=== PATIENT | female | born 1975 | race Caucasian/White ===

== ENCOUNTER 2022-06-10 00:46 | Day surgery (SDC) | payer BC, SELFPAY ==
[2022-05-28 13:45] VITALS: BMI 37.1
[2022-06-10 12:38] VITALS: BP 143/87; PULSE 74; RESP 18; TEMP 36.5; O2SAT 100
[2022-06-10] MEDS: LACTATED RINGERS 1,000 ML 150 ML IV CONT (12:46)
--- NOTE | 2022-06-10 12:47 | WPDANESEPPF ---
Anes - Initial Pre Proc Eval Procedure: Operation Date: 06/10/22 13:45 Proposed Procedures p Screening Colonoscopy - Ernesto Aleman MD Date/Time: 06/10/22 12:47 Surgeon: Ernesto Aleman MD Pre Op Diagnosis: neoplasm screening Patient Data Age: 47 Gender: F Height: 1.68 m Weight: 108.7 kg Last Vital Signs Temp 97.7 F 06/10/22 12:38 Pulse 74 06/10/22 12:38 Resp 18 06/10/22 12:38 BP 143/87 H 06/10/22 12:38 Pulse Ox 100 06/10/22 12:38 O2 Del Method Room Air 06/10/22 12:38 Allergies Allergy/AdvReac Type Severity Reaction Status Date / Time No Known Allergies Allergy Verified 06/10/22 12:29 Home Medications Medication Instructions Recorded Confirmed Type cetirizine 10 mg tablet (Zyrtec) 10 mg PO DAILY PRN allergies 05/28/22 05/28/22 History multivitamin with minerals-folic 1 tablet PO DAILY 05/28/22 05/28/22 History acid 0.4 mg tablet Patient hx anesthesia problems: none Family hx anesthesia problems: none Results Review: All pre-operative results and documents have been reviewed as part of the pre-operative evaluation. [facility] Social History Social History Smoking status: Never smoker Alcohol intake: current Drinks per week: 4 Alcohol use details: social Substance use type: does not use Living arrangements: with family Spiritual care concerns: No Anes - Eval Final PreProcedure Day of Procedure 06/10/22 12:47 Patient weight: obese Heart: regular rate and rhythm Lungs: clear to auscultation Airway: Mallampati scale class II Neurological: alert and oriented Last oral intake: >/= 8 hours ASA classification: II Emergent: no Anesthetic plan: proceed Anesthesia type and monitoring: general GIVS and standard monitoring Results Review: All pre-operative results and documents have been reviewed as part of the pre-operative evaluation. Informed Consent: The patient's anesthetic plan and its attendant risks and benefits were discussed with the patient/family/POA. Questions were solicited and answers provided to the satisfaction of the patient/family/POA.
--- NOTE | 2022-06-10 13:35 | PM.HPGS ---
History of Present Illness History of Present Illness Consent: Risks, benefits, and alternatives have been discussed and questions answered. Patient agrees to proceed with procedure. Chief complaint: neoplasm screening Narrative: Lori Ponce is a 47 year old female here for first screening colonoscopy Review of Systems Constitutional: Constitutional: Denies headache(s) and Denies weakness Eyes: Eyes: Denies blurry vision ENT: Reports Normal hearing present, Denies headache(s) and Denies neck pain Cardiovascular: Cardiovascular: Denies chest pain and Denies dyspnea Respiratory: Respiratory: Denies dyspnea Gastrointestinal: Gastrointestinal: Reports no additional gastrointestinal complaints Genitourinary: Genitourinary: Denies dysuria Musculoskeletal: Musculoskeletal: Denies neck pain Integumentary/Breasts: Skin/Breast: Denies dry skin Neurologic: Reports Normal hearing present, Denies headache(s) and Denies weakness Psychiatric: Psychiatric: Denies anxiety Endocrine: Endocrine: Denies change in body appearance Hematologic/Lymphatic: Hematologic/Lymphatic: Denies easy bleeding Allergic/Immunologic: Allergic/Immunologic: Denies urticaria PMF Past Medical History Medical History (Updated 06/10/22 @ 13:35 by Ernesto Aleman MD) Colon cancer screening Social History Social History Smoking status: Never smoker Alcohol intake: current Drinks per week: 4 Alcohol use details: social Substance use type: does not use Living arrangements: with family Spiritual care concerns: No Meds Home Medications and Allergies Home Medications Medication Instructions Recorded Confirmed Type cetirizine 10 mg tablet (Zyrtec) 10 mg PO DAILY PRN allergies 05/28/22 05/28/22 History multivitamin with minerals-folic 1 tablet PO DAILY 05/28/22 05/28/22 History acid 0.4 mg tablet Allergies Allergy/AdvReac Type Severity Reaction Status Date / Time No Known Allergies Allergy Verified 06/10/22 12:29 Vital Signs Vital Signs - 24 hr 06/10/22 12:38 Temperature 97.7 F Pulse Rate 74 Respiratory Rate 18 Blood Pressure 143/87 H Pulse Oximetry 100 Oxygen Delivery Room Air Exam Const: General: comfortable and no acute distress HENMT: Face/Nose/Sinus: Normal nares present Eyes: General: appearance normal, both eyes and all related structures Neck: Neck: no JVD Resp: Auscultation: clear to auscultation bilaterally Cardio: Rate: regular rate Rhythm: regular rhythm GI: Inspection: non-distended GI Palp: Yes Soft to palpation Skin: General skin exam: normal color Neuro: General: gait normal Speech: normal speech Extrem: General: normal to inspection Psych: Mental Status: mental status grossly normal Assessment and Plan Assessment and plan (1) Colon cancer screening: Code(s): Z12.11 - Encounter for screening for malignant neoplasm of colon Status: Acute Assessment and Plan: colonoscopy
[2022-06-10 14:04] VITALS: BP 132/74; PULSE 80; RESP 18; O2SAT 100
[2022-06-10 14:14] VITALS: BP 127/74; PULSE 74; RESP 16; O2SAT 100
[2022-06-10 14:24] VITALS: BP 137/87; PULSE 68; RESP 24; O2SAT 100
== END 2022-06-10 14:42 | disposition home or self-care (01) ==
PROVIDERS: PCP Family Medicine; Visit Provider Internal Medicine Gastroenterology
PROC: 0DJD8ZZ Inspection of Lower Intestinal Tract, Via Natural or Artificial Opening Endoscopic (ICD-10-PCS; CPT 45378; principal; 2022-06-10 13:45)
DX: Z12.11 Encounter for screening for malignant neoplasm of colon (principal); D12.0 Benign neoplasm of cecum; K64.8 Other hemorrhoids; E66.9 Obesity, unspecified; Z68.38 Body mass index [BMI] 38.0-38.9, adult
CPT/HCPCS: 45381; 45385; 88305; J2704; J7120